=== PATIENT | female | born 1995 | race African-American/Black ===

== ENCOUNTER 2016-09-24 21:20 | Emergency (ER) | payer OTHER ==
[~2016-09-24] VITALS: Ht 170.2 cm; Wt 81.6 kg
[2016-09-24 21:20] VITALS: BP 123/83
[~2016-09-24 21:20] MED LIST: IBUP-1060 PO; PNV1TABL25 PO
[2016-09-24] MEDS ORDERED: CYCL10TA2 PO (22:13)
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
== END 2016-09-24 22:57 | disposition home or self-care (01) ==
LOC: ER 21:20
DX: S80.11XA Contusion of right lower leg, initial encounter (principal); V49.88XA Car occupant (driver) (passenger) injured in other specified transport accidents, initial encounter; Y93.89 Activity, other specified; Y99.8 Other external cause status; Y92.488 Other paved roadways as the place of occurrence of the external cause
CPT/HCPCS: 99283

== ENCOUNTER 2019-04-21 08:55 | Emergency (ER) | payer MEDICAID, OTHER ==
[~2019-04-21] VITALS: Ht 170.2 cm; Wt 93.1 kg
[~2019-04-21 08:55] MED LIST changes: +CYCL10TA2 PO
[2019-04-21 09:28] VITALS: BP 125/56
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
== END 2019-04-21 10:03 | disposition home or self-care (01) ==
LOC: ER 08:55
DX: O46.8X3 Other antepartum hemorrhage, third trimester (principal); Z3A.31 31 weeks gestation of pregnancy
CPT/HCPCS: 81025; 99282; 99284

== ENCOUNTER 2019-04-21 09:56 | Observation (INO) | payer MEDICAID ==
[~2019-04-21] VITALS: Ht 170.2 cm; Wt 93.0 kg
[2019-04-21 09:28] VITALS: BP 125/56
[2019-04-21 11:07] LABS: BASO % 1 % (0-3); EOS # 0.2 x10^3/uL (0.0-0.7); EOS % 2 % (0-3); HEMATOCRIT 24.9 % (36.0-47.0); LYMPH # 1.5 x10^3/uL (1.0-4.8); LYMPH % 22 % (24-48); MEAN CORPUSCULAR HEMOGLOBIN 23 pg (25-35); MEAN CORPUSCULAR HGB CONC 32 g/dL (31-37); MEAN CORPUSCULAR VOLUME 70 fL (79-100); MONO # 0.5 x10^3/uL (0.0-1.1); MONO % 7 % (0-9); NEUT # 4.7 x10^3/uL (1.8-7.7); NEUT % 68 % (31-73); PLATELET COUNT 355 x10^3/uL (140-400); RED BLOOD COUNT 3.56 x10^6/uL (3.50-5.40); RED CELL DISTRIBUTION WIDTH 17.9 % (11.5-14.5); WHITE BLOOD COUNT 6.9 x10^3/uL (4.0-11.0)
[2019-04-21 11:44] LABS: PLT ESTIMATE ADEQUATE (ADEQUATE)
[2019-04-21 11:45] LABS: ANISOCYTOSIS SLIGHT; MICROCYTOSIS MOD
--- NOTE | 2019-04-21 14:10 | RAD ---
EXAM: Obstetrics sonogram. HISTORY: No care. Vaginal bleeding. TECHNIQUE: Sonographic imaging of a gravid uterus was performed. COMPARISON: None. FINDINGS: There is a single intrauterine fetus cephalic presentation with a heart rate of 168 bpm. There is a normal amniotic fluid index of 12.0 cm. There is an anterior placenta without evidence of placenta previa. There is a three-vessel umbilical cord with normal insertion. The bladder, stomach and kidneys are unremarkable. The brain and cervical spine are not well assessed due to presentation. The biparietal diameter is 8.11 cm, corresponding with 32 weeks and 4 days. The head circumference is 28.97 cm, corresponding with 31 weeks and 6 days. The abdominal circumference is 27.30 cm, corresponding with 31 weeks and 3 days. The femoral length is 5.87 cm, corresponding with 30 weeks and 5 days. The estimated gestational age patient combined ultrasound measurements is 31 weeks and 5 days and the estimated due date is 06/18/2019. The estimated weight is 1739 g. The cervix is obscured. IMPRESSION: 1. Single intrauterine fetus in cephalic presentation with a heart rate of 169 bpm and gestational age based on ultrasound measurements of 31 weeks and 5 days. 2. Suboptimal evaluation of the brain and cervical spine due to presentation and gestational age. The remainder of the anatomy is grossly unremarkable. 3. Obscured cervix. Electronically signed by: Kellie Alvarado MD (04/21/2019 2:07 PM) [place] [id number]
== END 2019-04-21 12:40 | disposition home or self-care (01) ==
LOC: 3 SO LND 09:56
PROVIDERS: ADMIT Obstetrics & Gynecology; ATTEND Obstetrics & Gynecology
DX: O99.89 Other specified diseases and conditions complicating pregnancy, childbirth and the puerperium (principal); M25.552 Pain in left hip; M25.551 Pain in right hip; O26.853 Spotting complicating pregnancy, third trimester; Z3A.31 31 weeks gestation of pregnancy
CPT/HCPCS: 36415; 76805; 85025; 86592; 86703; 86762; 86850; 86900; 86901; 87340; G0378; G0379

== ENCOUNTER 2019-06-18 01:40 | Observation (INO) | payer MEDICAID ==
[~2019-06-18 01:40] MED LIST changes: -DOCU-109 PO; -FERR325T14 PO
[2019-06-18] MEDS ORDERED: IV RINGERS,LACTATED 1000ML 1,000 ML IV SCH (01:45)
[2019-06-18 02:03] LABS: BILIRUBIN,URINE NEGATIVE (NEG); CLARITY,URINE CLEAR; COLOR,URINE YELLOW; NITRITE,URINE NEGATIVE (NEG); PH,URINE 6.5; PROTEIN,URINE NEGATIVE (NEG-TRACE)
[2019-06-18 02:10] LABS: BACTERIA,URINE MODERATE /HPF (0-FEW); BARBITURATES NEG (NEG); BENZODIAZEPINES NEG (NEG); CANNABINOIDS NEG (NEG); COCAINE NEG (NEG); METHADONE NEG (NEG); OPIATES NEG (NEG); PHENCYCLIDINE NEG (NEG)
[2019-06-18 02:11] LABS: SQUAMOUS EPITHELIAL CELL,UR MANY /LPF; YEAST,URINE PRESENT /HPF
[2019-06-18 02:13] LABS: AMPHETAMINE/METHAMPHETAMINE NEG (NEG)
[2019-06-24] MEDS ORDERED: DOCU-109 PO (10:28)
[2019-06-24] MEDS ORDERED: FERR325T14 PO (10:28)
[2019-06-24] MEDS ORDERED: IBUP-1060 PO (10:28)
== END 2019-06-18 04:00 | disposition home or self-care (01) ==
LOC: 3 SO LND 01:40
PROVIDERS: ADMIT Obstetrics & Gynecology; ATTEND Obstetrics & Gynecology
DX: O26.893 Other specified pregnancy related conditions, third trimester (principal); R10.9 Unspecified abdominal pain; Z3A.40 40 weeks gestation of pregnancy
CPT/HCPCS: 80307; 81001; 87086; G0378; G0379

== ENCOUNTER → 2019-06-18 | Outpatient (CLI) | payer MEDICAID ==
[~2019-06-18] MED LIST changes: +DOCU-109 PO; +FERR325T14 PO
== END | disposition home or self-care (01) ==
LOC: SPEC 15:48
PROVIDERS: ATTEND Obstetrics & Gynecology
DX: Z34.93 Encounter for supervision of normal pregnancy, unspecified, third trimester (principal); Z3A.40 40 weeks gestation of pregnancy
CPT/HCPCS: 36415; 87653